=== PATIENT | female | born 1955 | race Caucasian/White ===

== ENCOUNTER 2019-09-10 08:03 | Day surgery (SDC) | payer OTHER ==
[2019-09-09 12:51] VITALS: BMI 30.7
--- NOTE | 2019-09-10 11:56 | OP ---
DATE OF PROCEDURE: 09/10/2019 PROCEDURE PERFORMED: Esophagogastroduodenoscopy. PREOPERATIVE DIAGNOSIS: Abnormal CT scan, showing thickening of a segment of the proximal small bowel. There was a gastric remnant extending into a couple of feet beyond that segment. DESCRIPTION OF PROCEDURE: Informed consent was obtained from the patient. She was sedated with total intravenous anesthesia. The bite block was placed and the adult colonoscope was used to advance well into the jejunum. The esophagus was normal. The GE junction appeared normal. The stomach pouch appeared healthy. The gastrojejunal anastomosis was widely patent. There was a small 3 to 4 mm shallow erosion at the anastomosis; however, this unlikely is causing any significant symptoms. 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 Her gastric bypass was done apparently in the early 80s. She had one limb that was obviously stained with bile and was likely the afferent limb from jejunum to duodenum. The scope was advanced as far as possible into this limb; however, I was unable to reach all the way around to the stomach in a retrograde fashion. Still, given the CT findings, I would expect that we would have reached the segment that would have been thickened and this mucosa all appeared normal. I also then advanced the endoscope well into the jejunum with efferent limb. Again, the mucosa of the jejunum was normal. IMPRESSION: 1. Small 3 to 4 mm shallow erosion at the gastrojejunostomy site. This is unlikely causing significant symptoms. 2. 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 The colonoscope was advanced well into the efferent and afferent limbs and the mucosa appeared normal. I advanced well into the afferent limb with bilious staining and I would expect that we would have reached the segment that appeared thickened by CT. This mucosa appeared normal. 3. The gastric pouch and esophagus appeared normal. RECOMMENDATIONS: 1. Check H pylori stool antigen. 2. Follow up in the office. 3. Treatment of her chronic constipation with scheduled laxatives. Job ID: [id number]
[2019-09-10] MEDS ORDERED: PROPOFOL 200 MG/20 ML VIAL ONE (14:30)
[2019-09-10] MEDS ORDERED: Lidocaine 1% PF 5 ML VIAL ONE (14:30)
== END 2019-09-10 10:53 | disposition home or self-care (01) ==
LOC: SDC 08:03
PROVIDERS: ATTEND Internal Medicine Gastroenterology
PROC: 0DJ08ZZ Inspection of Upper Intestinal Tract, Via Natural or Artificial Opening Endoscopic (ICD-10-PCS; principal; 2019-09-10)
DX: K31.89 Other diseases of stomach and duodenum (principal); K59.09 Other constipation; K21.9 Gastro-esophageal reflux disease without esophagitis; I10 Essential (primary) hypertension; E11.9 Type 2 diabetes mellitus without complications; D64.9 Anemia, unspecified; F41.9 Anxiety disorder, unspecified; Z79.84 Long term (current) use of oral hypoglycemic drugs; Z79.899 Other long term (current) drug therapy; Z88.0 Allergy status to penicillin; Z88.5 Allergy status to narcotic agent; Z88.8 Allergy status to other drugs, medicaments and biological substances; Z95.0 Presence of cardiac pacemaker
CPT/HCPCS: J2001; J2704

== ENCOUNTER 2021-10-12 07:22 | Day surgery (SDC) | payer OTHER ==
[2021-10-05 09:46] VITALS: BMI 33.6
[2021-10-12] MEDS ORDERED: Isoproterenol 0.2 MG/1 ML AMP ONE (09:07)
[2021-10-12] MEDS ORDERED: Heparin 25,000 units/D5W 500 ML ONE (09:07)
[2021-10-12] MEDS ORDERED: Heparin 10,000 UNITS/ 10 ML VIAL ONE (09:07)
[2021-10-12] MEDS ORDERED: Protamine Sulfate 50 MG/5 ML VIAL ONE (09:07)
[2021-10-12] MEDS ORDERED: Dexamethasone 20 MG/5 ML VIAL ONE (10:00)
[2021-10-12] MEDS ORDERED: Lidocaine 1% PF 5 ML VIAL ONE (10:00)
[2021-10-12] MEDS ORDERED: Rocuronium Bromide 10 MG/ML (10ML VIAL) ONE (10:00)
[2021-10-12] MEDS ORDERED: PROPOFOL 200 MG/20 ML VIAL ONE (10:00)
[2021-10-12] MEDS ORDERED: Phenylephrine 10 MG/ML VIAL ONE (10:00)
[2021-10-12] MEDS ORDERED: Ondansetron PF 4 MG/2 ML Vial ONE ×2 (10:00→13:40)
[2021-10-12] MEDS ORDERED: Fentanyl 100 MCG/2 ML VIAL ONE ×2 (10:07→12:50)
[2021-10-12] MEDS ORDERED: Clindamycin/D5W 900 mg/50 ml Premix Bag ONE (10:24)
[2021-10-12] MEDS ORDERED: SUGAMMADEX SODIUM 200 MG/2 ML VIAL ONE (12:33)
[2021-10-12] MEDS ORDERED: Promethazine HCl 25 MG/ML VIAL ONE (14:11)
== END 2021-10-12 17:35 | disposition home or self-care (01) ==
LOC: CCL 07:22
PROVIDERS: ATTEND Internal Medicine Cardiovascular Disease
PROC: 4A0234Z Measurement of Cardiac Electrical Activity, Percutaneous Approach (ICD-10-PCS; principal; 2021-10-12)
PROC: 02583ZZ Destruction of Conduction Mechanism, Percutaneous Approach (ICD-10-PCS; principal; 2021-10-12)
PROC: 02K83ZZ Map Conduction Mechanism, Percutaneous Approach (ICD-10-PCS; principal; 2021-10-12)
PROC: 4A023FZ Measurement of Cardiac Rhythm, Percutaneous Approach (ICD-10-PCS; principal; 2021-10-12)
DX: I48.0 Paroxysmal atrial fibrillation (principal); I49.5 Sick sinus syndrome; I10 Essential (primary) hypertension; E11.9 Type 2 diabetes mellitus without complications; D50.9 Iron deficiency anemia, unspecified; M79.7 Fibromyalgia; Z79.01 Long term (current) use of anticoagulants; Z79.4 Long term (current) use of insulin; Z79.84 Long term (current) use of oral hypoglycemic drugs; Z79.899 Other long term (current) drug therapy; Z88.0 Allergy status to penicillin; Z88.5 Allergy status to narcotic agent; Z88.6 Allergy status to analgesic agent; Z95.0 Presence of cardiac pacemaker
CPT/HCPCS: 85347; 93005; 93312; 93613; 93656; 93657; 93662; C1730; C1732; C1759; C1776; C1894; C2630; J1100; J1644; J2370; J2405; J2550; J2704; J2720; J3010; J3490

== ENCOUNTER 2023-11-26 01:46 | Inpatient (IN) | payer OTHER, MEDICAID ==
[2023-11-26] MEDS ORDERED: Ondansetron PF 4 MG/2 ML Vial IVP PRN (02:48)
[2023-11-26] MEDS ORDERED: Acetaminophen 650 MG Suppository PR PRN (02:48)
[2023-11-26] MEDS ORDERED: Ondansetron ODT 4 MG TAB PO PRN (02:48)
[2023-11-26] MEDS: Promethazine HCl 12.5 MG in Sodium Chloride 0.9% 50 ML IVPB SCH ×2 (02:53→09:57)
[2023-11-26 03:09] LABS: Critical Call Chem Troponin I NUR.NKE @0309; Troponin I 0.227 ng/mL (< 0.028)
[2023-11-26] MEDS ORDERED: Acetaminophen 500 MG TAB ONE (03:56)
[2023-11-26] MEDS ORDERED: Dextrose 5% in Water 1,000 ML IV PRN (04:24)
[2023-11-26] MEDS ORDERED: Glucagon 1 MG/ML KIT IM PRN (04:24)
[2023-11-26] MEDS ORDERED: Dextrose 50% Abboject 50 ML SYRINGE SLOW IVP PRN (04:24)
[2023-11-26 04:58] LABS: #Basophils 0.1 thou/uL (0.0-0.2); #Eosinphils 0.1 thou/uL (0.0-0.7); #Monocytes 0.7 thou/uL (0.11-0.59); #Neutrophils 4.3 thou/uL (1.40-6.50); %Basophils 1.1 % (0.0-1.0); %Eosinophils 1.2 % (0.0-10.0); %Lymphocytes 28.9 % (21.0-51.0); %Neutrophils 58.3 % (42.0-75.0); Hematocrit 38.1 % (36.0-47.0); Hemoglobin 12.1 g/dL (12.0-16.0); Mean Corpuscular HGB CONC 31.8 g/dL (32.0-36.0); Mean Corpuscular Hemoglobin 31.9 pg (27.0-31.0); Mean Corpuscular Volume 100.5 fl (78.0-98.0); Mean Platelet Volume 10.4 fL (7.4-10.4); Platelet Count 285 10x3/uL (130-400); RBC Distribution Width 14.2 % (11.5-14.5); Red Blood Cell (RBC) Count 3.79 mill/uL (4.20-5.40); White Blood Cell (WBC) Count 7.4 10x3/uL (4.8-10.8)
[2023-11-26 05:15] LABS: Anion Gap 12 mmol/L (10-20); BUN (Urea Nitrogen) 18 mg/dL (9.8-20.1); Calc. Creatinine Clearance 43 mL/min (70-130); Calcium 8.8 mg/dL (7.8-10.44); Carbon Dioxide 22 mmol/L (23-31); Chloride 106 mmol/L (98-107); Estimated GFR 31; Glucose 176 mg/dL (80-115); Potassium 4.2 mmol/L (3.5-5.1); Sodium 136 mmol/L (136-145)
[2023-11-26] MEDS: Enoxaparin 100 MG (1 mL) SYRINGE SC SCH (05:57)
[2023-11-26] MEDS ORDERED: Metoprolol Tartrate 5 MG (5 mL) VIAL ONE (06:28)
[2023-11-26] MEDS: Metoprolol Tartrate 5 MG (5 mL) VIAL IVP SCH (06:46)
[2023-11-26 08:03] LABS: Bacteria/HPF None Seen HPF (None Seen); RBC/HPF 0-3 HPF (0-3); Squamous Epithelial 0-3 HPF (0-3)
[2023-11-26] MEDS ORDERED: Aspirin 81 mg Enteric Coated Tablet ONE (09:13)
[2023-11-26] MEDS: Aspirin 81 mg Enteric Coated Tablet PO SCH (09:56)
[2023-11-26 10:40] LABS: Critical Call Chem Troponin I RESULT DECREASING; Troponin I 0.217 ng/mL (< 0.028)
[2023-11-26] MEDS ORDERED: Metoprolol Tartrate 25 MG TAB ONE (12:35)
[2023-11-26] MEDS: Metoprolol Tartrate 25 MG TAB PO SCH ×2 (12:38→19:41)
[2023-11-26] MEDS ORDERED: HumaLOG 300 UNITS/3 ML VIAL ONE (13:15)
[2023-11-26] MEDS ORDERED: Enoxaparin 100 MG (1 mL) SYRINGE ONE (17:21)
[2023-11-26 17:54] VITALS: BMI 16.5
[2023-11-27 05:30] LABS: #Basophils 0.1 thou/uL (0.0-0.2); #Eosinphils 0.1 thou/uL (0.0-0.7); #Monocytes 0.6 thou/uL (0.11-0.59); #Neutrophils 3.2 thou/uL (1.40-6.50); %Eosinophils 1.4 % (0.0-10.0); %Lymphocytes 36.3 % (21.0-51.0); %Monocytes 10.2 % (0.0-10.0); %Neutrophils 50.6 % (42.0-75.0); Hematocrit 38.8 % (36.0-47.0); Hemoglobin 13.1 g/dL (12.0-16.0); Mean Corpuscular HGB CONC 33.8 g/dL (32.0-36.0); Mean Corpuscular Hemoglobin 34.4 pg (27.0-31.0); Mean Corpuscular Volume 101.8 fl (78.0-98.0); Mean Platelet Volume 10.9 fL (7.4-10.4); Platelet Count 266 10x3/uL (130-400); Red Blood Cell (RBC) Count 3.81 mill/uL (4.20-5.40); White Blood Cell (WBC) Count 6.3 10x3/uL (4.8-10.8)
[2023-11-27 05:51] LABS: Anion Gap 19 mmol/L (10-20); BUN (Urea Nitrogen) 22 mg/dL (9.8-20.1); Calc. Creatinine Clearance 20 mL/min (70-130); Calcium 8.9 mg/dL (7.8-10.44); Carbon Dioxide 14 mmol/L (23-31); Chloride 105 mmol/L (98-107); Estimated GFR 32; Glucose 231 mg/dL (80-115); Potassium 3.9 mmol/L (3.5-5.1); Sodium 134 mmol/L (136-145)
[2023-11-27] MEDS: HumaLOG 300 UNITS/3 ML VIAL SC PRN ×2 (06:05→21:15)
[2023-11-27] MEDS ORDERED: ADENOSINE 60 MG/20 ML SDV ONE (09:53)
[2023-11-27] MEDS: Sodium Bicarbonate Tab 325 MG TAB PO SCH (15:44)
[2023-11-27] MEDS: Promethazine HCl 12.5 MG in Sodium Chloride 0.9% 50 ML IVPB PRN (16:05)
[2023-11-27] MEDS: Atorvastatin Calcium 20 MG TAB PO SCH (21:07)
[2023-11-28] MEDS: Sodium Chloride 0.9% 1,000 ML IV SCH (00:58)
[2023-11-28 04:49] LABS: #Basophils 0.1 thou/uL (0.0-0.2); #Eosinphils 0.1 thou/uL (0.0-0.7); #Monocytes 0.7 thou/uL (0.11-0.59); #Neutrophils 4.3 thou/uL (1.40-6.50); %Basophils 0.9 % (0.0-1.0); %Eosinophils 1.7 % (0.0-10.0); %Lymphocytes 32.4 % (21.0-51.0); %Monocytes 9.4 % (0.0-10.0); Hematocrit 32.2 % (36.0-47.0); Hemoglobin 11.2 g/dL (12.0-16.0); Mean Corpuscular HGB CONC 34.8 g/dL (32.0-36.0); Mean Corpuscular Volume 103.5 fl (78.0-98.0); Mean Platelet Volume 10.6 fL (7.4-10.4); Platelet Count 223 10x3/uL (130-400); RBC Distribution Width 13.9 % (11.5-14.5); Red Blood Cell (RBC) Count 3.11 mill/uL (4.20-5.40); White Blood Cell (WBC) Count 7.8 10x3/uL (4.8-10.8)
[2023-11-28 05:15] LABS: Anion Gap 20 mmol/L (10-20); BUN (Urea Nitrogen) 25 mg/dL (9.8-20.1); Calc. Creatinine Clearance 43 mL/min (70-130); Calcium 8.7 mg/dL (7.8-10.44); Carbon Dioxide 10 mmol/L (23-31); Chloride 107 mmol/L (98-107); Estimated GFR 31; Glucose 264 mg/dL (80-115); Potassium 4.1 mmol/L (3.5-5.1); Sodium 133 mmol/L (136-145)
[2023-11-28] MEDS ORDERED: Communication Order-Pharmacy FS SCH ×2 (06:00→13:30)
[2023-11-28] MEDS: Enoxaparin 100 MG (1 mL) SYRINGE SC SCH (06:49)
[2023-11-28 09:15] LABS: Actual Bicarbonate (HCO3a) 19.8 mEq/L (22-28); Base Excess (BEa) -3.7 mEq/L (-2.0 to +3.0); CO2 Tension 30.6 mmHg (35.0-45.0); Calcium, Ionized (arterial) 1.16 mmol/L (1.12-1.30); Carboxyhemoglobin (COHb) 0.3 gm% (0.0-3.0); Hematocrit-ABG 32 % (36.0-47.0); Hemoglobin (Hb) 10.9 g/dL (12.0-16.0); O2 Tension (PaO2), arterial 99.7 mmHg (> 80.0); Potassium - ABG Lab 4.27 mmol/L (3.70-5.30); pH, Arterial 7.429 (7.35-7.45)
[2023-11-28] MEDS: Sodium Bicarb 50 mEq/50 ML VIAL IVP SCH ×2 (09:21→10:58)
[2023-11-28 09:23] LABS: Magnesium 1.6 mg/dL (1.6-2.6)
[2023-11-28 14:19] LABS: Anion Gap 19 mmol/L (10-20); BUN (Urea Nitrogen) 23 mg/dL (9.8-20.1); Calc. Creatinine Clearance 44 mL/min (70-130); Calcium 8.9 mg/dL (7.8-10.44); Carbon Dioxide 17 mmol/L (23-31); Chloride 106 mmol/L (98-107); Estimated GFR 30; Glucose 216 mg/dL (80-115); Sodium 138 mmol/L (136-145)
[2023-11-28] MEDS: Amlodipine 5 MG TAB PO SCH (14:29)
[2023-11-28] MEDS: Sodium Bicarb 50 MEQ/50 ML Abboject 8.4% SYRINGE IVP SCH (18:31)
[2023-11-29] MEDS: Sodium Chloride 0.9% 1,000 ML IV SCH (00:19)
[2023-11-29 05:32] LABS: Hematocrit 31.4 % (36.0-47.0); Hemoglobin 10.3 g/dL (12.0-16.0); Mean Corpuscular HGB CONC 32.8 g/dL (32.0-36.0); Mean Corpuscular Hemoglobin 32.7 pg (27.0-31.0); Mean Corpuscular Volume 99.7 fl (78.0-98.0); Mean Platelet Volume 10.8 fL (7.4-10.4); Platelet Count 197 10x3/uL (130-400); RBC Distribution Width 13.6 % (11.5-14.5); Red Blood Cell (RBC) Count 3.15 mill/uL (4.20-5.40); White Blood Cell (WBC) Count 7.8 10x3/uL (4.8-10.8)
[2023-11-29 05:33] LABS: #Basophils 0.1 thou/uL (0.0-0.2); #Eosinphils 0.1 thou/uL (0.0-0.7); #Monocytes 0.7 thou/uL (0.11-0.59); #Neutrophils 5.1 thou/uL (1.40-6.50); %Basophils 0.8 % (0.0-1.0); %Eosinophils 1.5 % (0.0-10.0); %Monocytes 8.6 % (0.0-10.0); %Neutrophils 65.3 % (42.0-75.0)
[2023-11-29 06:02] LABS: Anion Gap 14 mmol/L (10-20); BUN (Urea Nitrogen) 17 mg/dL (9.8-20.1); Calc. Creatinine Clearance 51 mL/min (70-130); Calcium 8.6 mg/dL (7.8-10.44); Carbon Dioxide 23 mmol/L (23-31); Chloride 105 mmol/L (98-107); Estimated GFR 37; Glucose 164 mg/dL (80-115); Potassium 3.9 mmol/L (3.5-5.1); Sodium 138 mmol/L (136-145)
[2023-11-29] MEDS ORDERED: Lidocaine 1% (PF) 30 ML VIAL ONE (06:25)
[2023-11-29] MEDS ORDERED: fentaNYL 50 mcg/mL 1 mL Vial ONE (07:06)
[2023-11-29] MEDS ORDERED: Midazolam HCl 2 mg/2 ml Vial ONE (07:06)
[2023-11-29] MEDS ORDERED: hydrALAZINE 20 MG/ML VIAL ONE (07:32)
[2023-11-29] MEDS ORDERED: Nitroglycerin 4.9 GM Bottle ONE (07:36)
[2023-11-29] MEDS ORDERED: Nitroglycerin 2% Ointment 1 INCH/1 GM Packet ONE (07:44)
[2023-11-29] MEDS ORDERED: Ondansetron PF 4 MG/2 ML Vial ONE (08:17)
[2023-11-29] MEDS ORDERED: Nitroglycerin 0.4 MG TAB (25 Tab Bottle) SL PRN (09:18)
[2023-11-29] MEDS ORDERED: Sodium Chloride 0.9% 200 ML IV PRN (09:18)
[2023-11-29] MEDS: Amlodipine 5 MG TAB PO SCH (09:50)
[2023-11-29] MEDS: Amlodipine 10 MG TAB PO SCH (10:45)
[2023-11-29] MEDS ORDERED: Dextrose 50% Abboject 50 ML SYRINGE SLOW IVP PRN (12:50)
[2023-11-29] MEDS ORDERED: Dextrose 5% in Water 1,000 ML IV PRN (12:50)
[2023-11-29] MEDS ORDERED: Glucagon 1 MG/ML KIT IM PRN (12:50)
[2023-11-29] MEDS: HumaLOG 300 UNITS/3 ML VIAL SC PRN (13:11)
[2023-11-29] MEDS: Acetaminophen 325 MG TAB PO PRN (16:33)
[2023-11-29] MEDS ORDERED: Diazepam 2 MG TAB PO PRN (16:55)
[2023-11-29] MEDS: Furosemide 20 MG TAB PO SCH (20:26)
[2023-11-29] MEDS: Insulin Glargine 30 UNITS/0.3 ML VIAL SC SCH (20:27)
[2023-11-29] MEDS: Clopidogrel Bisulfate 300 MG TAB PO SCH (20:27)
[2023-11-30 05:15] LABS: #Basophils 0.1 thou/uL (0.0-0.2); #Monocytes 0.8 thou/uL (0.11-0.59); #Neutrophils 8.6 thou/uL (1.40-6.50); %Basophils 0.5 % (0.0-1.0); %Eosinophils 0.4 % (0.0-10.0); %Lymphocytes 12.7 % (21.0-51.0); %Monocytes 7.4 % (0.0-10.0); %Neutrophils 78.6 % (42.0-75.0); Hematocrit 30.4 % (36.0-47.0); Hemoglobin 10.1 g/dL (12.0-16.0); Mean Corpuscular HGB CONC 33.2 g/dL (32.0-36.0); Mean Corpuscular Hemoglobin 32.7 pg (27.0-31.0); Mean Corpuscular Volume 98.4 fl (78.0-98.0); Mean Platelet Volume 10.3 fL (7.4-10.4); Platelet Count 209 10x3/uL (130-400); RBC Distribution Width 13.7 % (11.5-14.5); Red Blood Cell (RBC) Count 3.09 mill/uL (4.20-5.40)
[2023-11-30] MEDS: Levothyroxine Sodium 50 MCG TAB PO SCH (05:23)
[2023-11-30 05:50] LABS: Anion Gap 8 mmol/L (10-20); BUN (Urea Nitrogen) 11 mg/dL (9.8-20.1); Calc. Creatinine Clearance 49 mL/min (70-130); Calcium 8.8 mg/dL (7.8-10.44); Carbon Dioxide 27 mmol/L (23-31); Chloride 104 mmol/L (98-107); Estimated GFR 34; Glucose 130 mg/dL (80-115); Potassium 3.4 mmol/L (3.5-5.1); Sodium 136 mmol/L (136-145)
[2023-11-30 07:34] VITALS: BP 159/66
[2023-11-30] MEDS: CO Q-10 CAPSULE 100 MG PO SCH (09:35)
[2023-11-30] MEDS: Clopidogrel Bisulfate 75 MG TAB PO SCH (09:35)
[2023-11-30] MEDS: Losartan 25 MG TAB PO SCH (09:36)
[2023-11-30] MEDS: Amlodipine 10 MG TAB PO SCH (09:36)
[2023-11-30] MEDS: glipiZIDE 10 MG TAB PO SCH (09:39)
[2023-11-30 10:54] VITALS: TEMP 99.1
[2023-12-06] MEDS ORDERED: Dulaglutide [Trulicity] 0.75 MG/0.5 ML Pen.Inj SC SCH (09:00)
== END 2023-11-30 12:00 | disposition home or self-care (01) | DRG 281 ==
LOC: ERS 01:46 → ERHOLD 02:28 → 2NO 18:10
PROVIDERS: ADMIT Student in an Organized Health Care Education/Training Program; ATTEND Family Medicine
PROC: 4A033R1 Measurement of Arterial Saturation, Peripheral, Percutaneous Approach (ICD-10-PCS; 2023-11-28)
PROC: 4A023N7 Measurement of Cardiac Sampling and Pressure, Left Heart, Percutaneous Approach (ICD-10-PCS; principal; 2023-11-29)
PROC: B2151ZZ Fluoroscopy of Left Heart using Low Osmolar Contrast (ICD-10-PCS; 2023-11-29)
PROC: B2111ZZ Fluoroscopy of Multiple Coronary Arteries using Low Osmolar Contrast (ICD-10-PCS; 2023-11-29)
DX: I48.0 Paroxysmal atrial fibrillation (principal); I21.A1 Myocardial infarction type 2; E87.20 Acidosis, unspecified; N17.9 Acute kidney failure, unspecified; Z88.5 Allergy status to narcotic agent; Z88.0 Allergy status to penicillin; Z88.8 Allergy status to other drugs, medicaments and biological substances; D50.9 Iron deficiency anemia, unspecified; Z95.0 Presence of cardiac pacemaker; Z90.710 Acquired absence of both cervix and uterus; Z90.49 Acquired absence of other specified parts of digestive tract; Z79.899 Other long term (current) drug therapy; E11.22 Type 2 diabetes mellitus with diabetic chronic kidney disease; I12.9 Hypertensive chronic kidney disease with stage 1 through stage 4 chronic kidney disease, or unspecified chronic kidney disease; E66.01 Morbid (severe) obesity due to excess calories; Z68.36 Body mass index [BMI] 36.0-36.9, adult; N18.30 Chronic kidney disease, stage 3 unspecified; D63.1 Anemia in chronic kidney disease; Z79.4 Long term (current) use of insulin; E87.6 Hypokalemia
CPT/HCPCS: 36415; 36416; 74176; 76770; 78452; 80048; 81015; 82805; 83036; 83735; 84484; 85025; 93005; 93017; 93306; 93454; 94760; 96365; 99152; A9502; C1769; J0153; J0360; J1650; J1815; J2001; J2250; J2405; J2550; J3010; J7050

== ENCOUNTER 2023-12-31 15:44 | Inpatient (IN) | payer OTHER, MEDICAID ==
[2023-12-31] MEDS ORDERED: Ondansetron PF 4 MG/2 ML Vial IVP PRN (17:31)
[2023-12-31] MEDS ORDERED: Glucagon 1 MG/ML KIT IM PRN (17:31)
[2023-12-31] MEDS ORDERED: Dextrose 50% Abboject 50 ML SYRINGE SLOW IVP PRN (17:31)
[2023-12-31] MEDS ORDERED: Dextrose 5% in Water 1,000 ML IV PRN (17:31)
[2023-12-31] MEDS ORDERED: Insulin Regular 300 UNITS/3 ML VIAL SC PRN (17:31)
[2023-12-31] MEDS ORDERED: Ondansetron ODT 4 MG TAB PO PRN (17:31)
[2023-12-31] MEDS ORDERED: Sodium Chloride 0.9% 1,000 ML IV SCH (17:45)
[2023-12-31 18:26] LABS: Anion Gap 16 mmol/L (10-20); BUN (Urea Nitrogen) 17 mg/dL (9.8-20.1); Calc. Creatinine Clearance 48 mL/min (70-130); Calcium 8.7 mg/dL (7.8-10.44); Carbon Dioxide 20 mmol/L (23-31); Chloride 102 mmol/L (98-107); Estimated GFR 37; Glucose 346 mg/dL (80-115); Sodium 134 mmol/L (136-145)
[2023-12-31 18:27] LABS: Troponin I 0.059 ng/mL (< 0.028)
[2023-12-31] MEDS: Metoclopramide HCl 10 MG (2 mL) VIAL IVP SCH (18:38)
[2023-12-31] MEDS: Losartan 25 MG TAB PO SCH (18:38)
[2023-12-31] MEDS: Heparin 5,000 UNITS/ML VIAL SC SCH (21:21)
[2023-12-31] MEDS: HumaLOG 300 UNITS/3 ML VIAL SC PRN (21:21)
[2023-12-31] MEDS: hydrALAZINE 20 MG/ML VIAL SLOW IVP PRN (21:27)
[2023-12-31 22:15] LABS: Troponin I 0.057 ng/mL (< 0.028)
[2023-12-31] MEDS: Nitroglycerin 2% Ointment 1 INCH/1 GM Packet TOP SCH (23:20)
[2024-01-01] MEDS: Promethazine HCl 12.5 MG in Sodium Chloride 0.9% 50 ML IVPB PRN (00:01)
[2024-01-01] MEDS ORDERED: Senokot S 8.6-50 MG TAB PO PRN (03:07)
[2024-01-01] MEDS: HumaLOG 300 UNITS/3 ML VIAL SC PRN (05:40)
[2024-01-01 06:02] LABS: #Basophils 0.09 10x3/uL (0.0-0.2); %Basophils 0.7 % (0.0-1.0); %Lymphocytes 17.6 % (21.0-51.0); %Neutrophils 69.9 % (42.0-75.0); Hemoglobin 13.4 g/dL (12.0-16.0); Mean Corpuscular HGB CONC 35.3 g/dL (32.0-36.0); Mean Corpuscular Hemoglobin 32.1 pg (27.0-31.0); Mean Corpuscular Volume 90.9 fL (78.0-98.0); Mean Platelet Volume 11.1 fL (7.4-10.4); Platelet Count 249 10x3/uL (130-400); RBC Distribution Width 13.2 % (11.5-14.5); Red Blood Cell (RBC) Count 4.18 mill/uL (4.20-5.40)
[2024-01-01 06:17] LABS: Anion Gap 16 mmol/L (10-20); BUN (Urea Nitrogen) 20 mg/dL (9.8-20.1); Calc. Creatinine Clearance 45 mL/min (70-130); Calcium 8.9 mg/dL (7.8-10.44); Carbon Dioxide 17 mmol/L (23-31); Chloride 103 mmol/L (98-107); Estimated GFR 35; Magnesium 1.6 mg/dL (1.6-2.6); Phosphorus 2.5 mg/dL (2.3-4.7); Sodium 132 mmol/L (136-145)
[2024-01-01 06:21] LABS: Critical Call Chemistry NUR.AC18@0621; Glucose 415 mg/dL (80-115)
[2024-01-01] MEDS: Losartan 25 MG TAB PO SCH (06:38)
[2024-01-01 08:06] VITALS: BMI 32.9
[2024-01-01] MEDS: Polyethylene Glycol 3350 17 GM Packet PO SCH (08:47)
[2024-01-01] MEDS: Sodium Chloride 0.9% 1,000 ML IV SCH (13:40)
[2024-01-01] MEDS ORDERED: Diazepam 2 MG TAB PO PRN (14:01)
[2024-01-01] MEDS: Acetaminophen 325 MG TAB PO PRN (16:20)
[2024-01-01] MEDS: Furosemide 20 MG TAB PO SCH (16:21)
[2024-01-01] MEDS: Atorvastatin Calcium 20 MG TAB PO SCH (20:38)
[2024-01-01] MEDS: Insulin Glargine 30 UNITS/0.3 ML VIAL SC SCH (20:40)
[2024-01-02] MEDS: Levothyroxine Sodium 50 MCG TAB PO SCH (04:31)
[2024-01-02 05:05] LABS: #Basophils 0.08 10x3/uL (0.0-0.2); %Eosinophils 2.8 % (0.0-10.0); %Monocytes 12.5 % (0.0-10.0); Hematocrit 33.2 % (36.0-47.0); Hemoglobin 11.7 g/dL (12.0-16.0); Mean Corpuscular HGB CONC 35.2 g/dL (32.0-36.0); Mean Corpuscular Hemoglobin 32.2 pg (27.0-31.0); Mean Corpuscular Volume 91.5 fL (78.0-98.0); Mean Platelet Volume 11.1 fL (7.4-10.4); Platelet Count 197 10x3/uL (130-400); RBC Distribution Width 13.1 % (11.5-14.5); Red Blood Cell (RBC) Count 3.63 mill/uL (4.20-5.40)
[2024-01-02 05:25] LABS: Anion Gap 11 mmol/L (10-20); BUN (Urea Nitrogen) 18 mg/dL (9.8-20.1); Calc. Creatinine Clearance 46 mL/min (70-130); Calcium 8.5 mg/dL (7.8-10.44); Carbon Dioxide 22 mmol/L (23-31); Chloride 106 mmol/L (98-107); Estimated GFR 36; Glucose 185 mg/dL (80-115); Sodium 136 mmol/L (136-145)
[2024-01-02] MEDS: Clopidogrel Bisulfate 75 MG TAB PO SCH (07:54)
[2024-01-02] MEDS: Aspirin 81 mg Enteric Coated Tablet PO SCH (07:54)
[2024-01-02] MEDS: Losartan 25 MG TAB PO SCH (07:55)
[2024-01-02] MEDS: Furosemide 20 MG TAB PO SCH (07:55)
[2024-01-02] MEDS: hydrALAZINE 20 MG/ML VIAL SLOW IVP SCH (16:34)
[2024-01-02] MEDS: cloNIDine 0.2 MG TAB PO SCH ×2 (17:50→20:52)
[2024-01-02] MEDS: Butalbital 50 MG/Aspirin 325 MG/Caffeine 40 MG CAPSULE PO PRN (17:52)
[2024-01-02] MEDS: NIFEdipine 10 MG CAP PO SCH (20:52)
[2024-01-03 04:41] LABS: %Basophils 1.5 % (0.0-1.0); %Lymphocytes 25.8 % (21.0-51.0); %Monocytes 10.7 % (0.0-10.0); %Neutrophils 56.7 % (42.0-75.0); Hematocrit 34.8 % (36.0-47.0); Hemoglobin 12.3 g/dL (12.0-16.0); Mean Corpuscular HGB CONC 35.3 g/dL (32.0-36.0); Mean Corpuscular Hemoglobin 31.5 pg (27.0-31.0); Mean Corpuscular Volume 89.2 fL (78.0-98.0); Mean Platelet Volume 11.4 fL (7.4-10.4); Platelet Count 210 10x3/uL (130-400); RBC Distribution Width 13.3 % (11.5-14.5)
[2024-01-03 05:00] LABS: Anion Gap 15 mmol/L (10-20); BUN (Urea Nitrogen) 17 mg/dL (9.8-20.1); Calc. Creatinine Clearance 52 mL/min (70-130); Calcium 8.5 mg/dL (7.8-10.44); Carbon Dioxide 18 mmol/L (23-31); Chloride 104 mmol/L (98-107); Estimated GFR 41; Glucose 231 mg/dL (80-115); Potassium 3.5 mmol/L (3.5-5.1); Sodium 133 mmol/L (136-145)
[2024-01-03 08:31] VITALS: BP 119/60; TEMP 98.2
[2024-01-08] MEDS ORDERED: Dulaglutide [Trulicity] 0.75 MG/0.5 ML Pen.Injctr SC SCH (09:00)
== END 2024-01-03 12:49 | disposition home or self-care (01) | DRG 638 ==
LOC: 2SW 17:03 → OBSVTOIN 01-01 15:40
PROVIDERS: ADMIT Family Medicine; ATTEND Internal Medicine
DX: E11.65 Type 2 diabetes mellitus with hyperglycemia (principal); I24.89 Other forms of acute ischemic heart disease; I25.10 Atherosclerotic heart disease of native coronary artery without angina pectoris; N18.32 Chronic kidney disease, stage 3b; I48.0 Paroxysmal atrial fibrillation; I12.9 Hypertensive chronic kidney disease with stage 1 through stage 4 chronic kidney disease, or unspecified chronic kidney disease; Z88.0 Allergy status to penicillin; Z79.82 Long term (current) use of aspirin; Z79.02 Long term (current) use of antithrombotics/antiplatelets; Z79.4 Long term (current) use of insulin; Z79.899 Other long term (current) drug therapy; Z95.0 Presence of cardiac pacemaker; Z90.710 Acquired absence of both cervix and uterus; Z90.49 Acquired absence of other specified parts of digestive tract
CPT/HCPCS: 36415; 36416; 80048; 83735; 84100; 84145; 85025; 96372; 96374; 96375; 96376; G0378; J0360; J1644; J1815; J2550; J2765; J7050

== ENCOUNTER 2024-02-24 19:34 | Observation (INO) | payer OTHER, MEDICAID ==
[2024-02-24 20:03] VITALS: BMI 33.0
[2024-02-24] MEDS ORDERED: Ondansetron PF 4 MG/2 ML Vial IVP PRN (20:22)
[2024-02-24] MEDS ORDERED: Dextrose 50% Abboject 50 ML SYRINGE SLOW IVP PRN (20:24)
[2024-02-24] MEDS ORDERED: Glucagon 1 MG/ML KIT IM PRN (20:24)
[2024-02-24] MEDS ORDERED: Dextrose 5% in Water 1,000 ML IV PRN (20:24)
[2024-02-24 20:53] LABS: #Basophils 0.05 10x3/uL (0.0-0.2); %Basophils 0.5 % (0.0-1.0); %Eosinophils 0.8 % (0.0-10.0); %Lymphocytes 15.8 % (21.0-51.0); %Monocytes 7.4 % (0.0-10.0); %Neutrophils 74.8 % (42.0-75.0); Hematocrit 38.3 % (36.0-47.0); Hemoglobin 12.6 g/dL (12.0-16.0); Mean Corpuscular HGB CONC 32.9 g/dL (32.0-36.0); Mean Corpuscular Hemoglobin 30.3 pg (27.0-31.0); Mean Corpuscular Volume 92.1 fL (78.0-98.0); Mean Platelet Volume 10.7 fL (7.4-10.4); Platelet Count 370 10x3/uL (130-400); RBC Distribution Width 14.2 % (11.5-14.5); Red Blood Cell (RBC) Count 4.16 mill/uL (4.20-5.40)
[2024-02-24 21:10] LABS: Anion Gap 16 mmol/L (10-20); BUN (Urea Nitrogen) 24 mg/dL (9.8-20.1); Calc. Creatinine Clearance 42 mL/min (70-130); Calcium 9.2 mg/dL (7.8-10.44); Carbon Dioxide 18 mmol/L (23-31); Chloride 107 mmol/L (98-107); Estimated GFR 33; Glucose 306 mg/dL (80-115); Magnesium 1.5 mg/dL (1.6-2.6); Potassium 5.1 mmol/L (3.5-5.1); Sodium 136 mmol/L (136-145)
[2024-02-24] MEDS: HumaLOG 300 UNITS/3 ML VIAL SC PRN (21:15)
[2024-02-24 21:17] LABS: Troponin I 0.144 ng/mL (< 0.028)
[2024-02-24] MEDS: Magnesium 2 GM/50 ML(in water) 2 GM in Premix 1 BAG IVPB SCH (22:13)
[2024-02-24] MEDS: Acetaminophen 325 MG TAB PO PRN (22:13)
[2024-02-24] MEDS: Digoxin 0.25 MG TAB PO SCH (22:13)
[2024-02-24 22:40] LABS: Free T4 (Free Thyroxine) 1.03 ng/dL (0.70-1.48)
[2024-02-25] MEDS: Magnesium Sulfate 2 GM in Sodium Chloride 0.9% 100 ML IVPB SCH (00:14)
[2024-02-25] MEDS: traMADol HCl 50 MG TAB PO SCH (00:35)
[2024-02-25] MEDS: dilTIAZem 125 MG in Sodium Chloride 0.9% 100 ML IVPB SCH (00:36)
[2024-02-25 05:00] LABS: #Basophils 0.08 10x3/uL (0.0-0.2); %Basophils 0.9 % (0.0-1.0); %Eosinophils 2.2 % (0.0-10.0); %Lymphocytes 23.8 % (21.0-51.0); %Monocytes 9.6 % (0.0-10.0); %Neutrophils 62.6 % (42.0-75.0); Hematocrit 38.8 % (36.0-47.0); Hemoglobin 12.6 g/dL (12.0-16.0); Mean Corpuscular HGB CONC 32.5 g/dL (32.0-36.0); Mean Corpuscular Hemoglobin 29.9 pg (27.0-31.0); Mean Corpuscular Volume 92.2 fL (78.0-98.0); Platelet Count 368 10x3/uL (130-400); RBC Distribution Width 14.3 % (11.5-14.5); Red Blood Cell (RBC) Count 4.21 mill/uL (4.20-5.40)
[2024-02-25 05:50] LABS: Anion Gap 14 mmol/L (10-20); BUN (Urea Nitrogen) 22 mg/dL (9.8-20.1); Calc. Creatinine Clearance 51 mL/min (70-130); Calcium 9.3 mg/dL (7.8-10.44); Carbon Dioxide 18 mmol/L (23-31); Chloride 108 mmol/L (98-107); Estimated GFR 41; Glucose 245 mg/dL (80-115); Magnesium 2.1 mg/dL (1.6-2.6); Potassium 4.4 mmol/L (3.5-5.1); Sodium 136 mmol/L (136-145)
[2024-02-25] MEDS: HumaLOG 300 UNITS/3 ML VIAL SC PRN (06:16)
[2024-02-25] MEDS ORDERED: Diazepam 2 MG TAB PO PRN (07:58)
[2024-02-25] MEDS ORDERED: Promethazine 25 MG TAB PO PRN ×2 (07:58→08:10)
[2024-02-25] MEDS: glipiZIDE 5 MG TAB PO SCH (08:27)
[2024-02-25] MEDS: Furosemide 20 MG TAB PO SCH (08:27)
[2024-02-25] MEDS: Digoxin 0.25 MG TAB PO SCH (08:28)
[2024-02-25] MEDS: Potassium Chloride 20 MEQ TAB PO SCH (08:28)
[2024-02-25] MEDS: Clopidogrel Bisulfate 75 MG TAB PO SCH (08:28)
[2024-02-25] MEDS: Aspirin 81 mg Enteric Coated Tablet PO SCH (08:28)
[2024-02-25] MEDS: Losartan 25 MG TAB PO SCH (08:29)
[2024-02-25] MEDS: Insulin Glargine 30 UNITS/0.3 ML VIAL SC SCH (08:29)
[2024-02-25] MEDS: Levothyroxine Sodium 50 MCG TAB PO SCH (08:29)
[2024-02-25] MEDS: cloNIDine 0.1 MG TAB PO SCH (08:29)
[2024-02-25] MEDS: Fenofibrate Nanocrystallized 145 MG TAB PO SCH (08:29)
[2024-02-25] MEDS ORDERED: Non-Formulary Item 1 EACH (Fenofibrate [Fenofibrate] 160 MG Tablet) PO SCH (09:00)
[2024-02-25] MEDS ORDERED: Furosemide 20 MG TAB PO SCH (09:00)
[2024-02-25] MEDS ORDERED: cloNIDine 0.1 MG TAB PO SCH (09:00)
[2024-02-25] MEDS ORDERED: Non-Formulary Item 1 EACH (Dulaglutide [Trulicity] 0.75 MG/0.5 ML Pen.Injctr) SC SCH (09:00)
[2024-02-25] MEDS ORDERED: Non-Formulary Item 1 EACH (Potassium Chloride [Potassium Chloride] 20 MEQ Tablet.Er) PO SCH (09:00)
[2024-02-25] MEDS ORDERED: dilTIAZem 30 MG TAB PO PRN (11:04)
[2024-02-25] MEDS: dilTIAZem CD 240 MG CAP PO SCH (11:46)
[2024-02-25] MEDS: Dulaglutide [Trulicity] 0.75 MG/0.5 ML Pen SC SCH (21:34)
[2024-02-25] MEDS: Atorvastatin Calcium 40 MG TAB PO SCH (21:46)
[2024-02-26 03:55] LABS: #Basophils 0.07 10x3/uL (0.0-0.2); %Basophils 0.8 % (0.0-1.0); %Eosinophils 2.1 % (0.0-10.0); %Lymphocytes 23.5 % (21.0-51.0); %Monocytes 8.5 % (0.0-10.0); %Neutrophils 64.2 % (42.0-75.0); Hematocrit 39.7 % (36.0-47.0); Hemoglobin 13.1 g/dL (12.0-16.0); Mean Corpuscular Hemoglobin 31.1 pg (27.0-31.0); Mean Corpuscular Volume 94.3 fL (78.0-98.0); Mean Platelet Volume 10.9 fL (7.4-10.4); Platelet Count 331 10x3/uL (130-400); RBC Distribution Width 14.1 % (11.5-14.5); Red Blood Cell (RBC) Count 4.21 mill/uL (4.20-5.40)
[2024-02-26 04:49] LABS: Anion Gap 15 mmol/L (10-20); BUN (Urea Nitrogen) 25 mg/dL (9.8-20.1); Calc. Creatinine Clearance 51 mL/min (70-130); Calcium 9.4 mg/dL (7.8-10.44); Carbon Dioxide 18 mmol/L (23-31); Chloride 106 mmol/L (98-107); Estimated GFR 41; Glucose 226 mg/dL (80-115); Magnesium 1.7 mg/dL (1.6-2.6); Potassium 4.4 mmol/L (3.5-5.1); Sodium 135 mmol/L (136-145)
[2024-02-26] MEDS: Levothyroxine Sodium 50 MCG TAB PO SCH (06:18)
[2024-02-26 08:10] VITALS: BP 116/67; TEMP 97.5
[2024-02-26] MEDS: dilTIAZem CD 240 MG CAP PO SCH (08:47)
== END 2024-02-26 11:35 | disposition home or self-care (01) ==
LOC: 2SW 19:59 → INTOOBSV 19:59
PROVIDERS: ADMIT Internal Medicine; ATTEND Emergency Medicine
DX: I48.4 Atypical atrial flutter (principal); I48.0 Paroxysmal atrial fibrillation; R00.2 Palpitations; I21.A1 Myocardial infarction type 2; I49.5 Sick sinus syndrome; E87.1 Hypo-osmolality and hyponatremia; E83.42 Hypomagnesemia; I12.9 Hypertensive chronic kidney disease with stage 1 through stage 4 chronic kidney disease, or unspecified chronic kidney disease; N18.30 Chronic kidney disease, stage 3 unspecified; D63.1 Anemia in chronic kidney disease; E11.22 Type 2 diabetes mellitus with diabetic chronic kidney disease; I25.10 Atherosclerotic heart disease of native coronary artery without angina pectoris; N17.9 Acute kidney failure, unspecified; R51.9 Headache, unspecified; R79.89 Other specified abnormal findings of blood chemistry; Z88.0 Allergy status to penicillin; Z88.5 Allergy status to narcotic agent; Z88.6 Allergy status to analgesic agent; Z88.8 Allergy status to other drugs, medicaments and biological substances; Z79.84 Long term (current) use of oral hypoglycemic drugs; Z79.899 Other long term (current) drug therapy; Z79.82 Long term (current) use of aspirin; Z79.02 Long term (current) use of antithrombotics/antiplatelets; Z95.0 Presence of cardiac pacemaker; Z95.818 Presence of other cardiac implants and grafts; Z95.5 Presence of coronary angioplasty implant and graft; Z98.84 Bariatric surgery status; Z90.710 Acquired absence of both cervix and uterus; Z90.49 Acquired absence of other specified parts of digestive tract; Z98.890 Other specified postprocedural states
CPT/HCPCS: 80048 ×3; 82962 ×3; 83735 ×3; 84439; 84443; 84481; 84484; 85025 ×3; 93005; 96375 ×2; G0378 ×3; 36415; 36416; 93010; J1815; J3475; J3490